=== PATIENT | female | born 1990 | race Hispanic/Latino ===

== ENCOUNTER 2017-11-20 12:08 | Inpatient (IN) | payer OTHER ==
[~2017-11-20] VITALS: Ht 165.1 cm; Wt 68.0 kg
[2017-11-20] MEDS: LACTATED RINGERS 1000ML 1,000 ML IV PRN ×2 (13:00→21:30)
[2017-11-20 13:06] LABS: APPEARANCE,URINE Clear (CLEAR); BILIRUBIN,URINE Negative (NEGATIVE); COLOR,URINE Yellow (YELLOW); GLUCOSE, URINE (UA) Negative (NEGATIVE); HEMATOCRIT 34.1 % (36-48); KETONES,URINE Negative (NEGATIVE); LEUKOCYTE ESTERASE ,URINE Negative (NEGATIVE); MEAN CORPUSCULAR HEMOGLOBIN 27.1 pg (27.0-33.0); MEAN CORPUSCULAR HGB CONC 33.1 g/dL (32.0-36.0); MEAN CORPUSCULAR VOLUME 81.9 fL (79-99); NITRATE,URINE Negative (NEGATIVE); NUCLEATED RED BLOOD CELLS 0.1 % (0.0-0.19); OCCULT BLOOD,URINE Small (NEGATIVE); PLATELET COUNT (AUTO) 265 K/uL (130-400); PROTEIN,URINE Negative (NEGATIVE); RED BLOOD CELL COUNT(AUTO) 4.16 MIL/uL (4.00-5.50); RED CELL DISTRIBUTION WIDTH 14.8 % (11.0-15.5); UROBILINOGEN,URINE 0.2 mg/dL (0.2-1.0); WHITE BLOOD COUNT (AUTO) 7.3 K/uL (4.8-10.8)
[2017-11-20 13:13] LABS: BACTERIA,URINE Rare /HPF (None Seen); RBC,URINE 0-1 /HPF (0-1); SQUAMOUS EPITHELIAL CELL,UR Rare /HPF (0-2); WBC,URINE 0-1 /HPF (0-1)
[2017-11-21] MEDS ORDERED: OXYTOCIN 10 USP UNITS/ML ONE ×2 (03:51→15:19)
[2017-11-21] MEDS ORDERED: LACTATED RINGERS 1000ML 1,000 ML IV ONE (03:51)
[2017-11-21] MEDS ORDERED: OXYTOCIN 10 USP UNITS/ML 20 UNIT in LACTATED RINGERS 1000ML 1,000 ML IV SCH (05:00)
[2017-11-21] MEDS ORDERED: NALOXONE HCL 0.4 MG/1 ML ML IV PRN (08:15)
[2017-11-21] MEDS ORDERED: LACTATED RINGERS 500 ML 500 ML IV PRN (08:15)
[2017-11-21] MEDS ORDERED: EPHEDRINE SULFATE 50 MG/ML AMPULE IVP PRN (08:15)
[2017-11-21 08:21] LABS: HEPATITIS Bs ANTIGEN SCREEN P Negative (Negative)
[2017-11-21] MEDS ORDERED: METHYLERGONOVINE MALEATE 0.2 MG/1 ML ML ONE (15:19)
[2017-11-21] MEDS ORDERED: DIPH,PERTUSS(ACELL),TET VAC/PF 0.5 ML VIAL IM PRN (15:30)
[2017-11-21] MEDS ORDERED: ACETAMINOPHEN 325 MG TAB PO PRN (15:30)
[2017-11-21] MEDS ORDERED: HYDROCODONE/ACETAMINOPHEN 5/325 MG TAB PO PRN (15:30)
[2017-11-21] MEDS ORDERED: WITCH HAZEL 1 PAD TP PRN (15:30)
[2017-11-21] MEDS ORDERED: BENZOCAINE/LANOLIN/ALOE VERA 60 ML AEROSOL TP PRN (15:30)
[2017-11-21] MEDS ORDERED: MEASLES/MUMPS/RUBELLA VACCINE, LIVE 0.5 ML/VIAL SQ PRN (15:30)
[2017-11-21] MEDS ORDERED: LANOLIN 30GM OINTMENT TP PRN (15:30)
[2017-11-21 17:03] VITALS: BP 145/95
[2017-11-21] MEDS ORDERED: PNV11TAB5 PO (17:21)
[2017-11-21] MEDS: IBUPROFEN 600 MG TABLET PO PRN (18:54)
[2017-11-21 19:23] VITALS: BP 128/77
[2017-11-21] MEDS: DOCUSATE SODIUM 100 MG CAP PO SCH (20:36)
[2017-11-22 00:41] VITALS: BP 118/66
[2017-11-22] MEDS: IBUPROFEN 600 MG TABLET PO PRN ×3 (00:57→15:27)
[2017-11-22 04:48] VITALS: BP 113/70
[2017-11-22 07:23] VITALS: BP 105/51
[2017-11-22] MEDS: DOCUSATE SODIUM 100 MG CAP PO SCH (08:36)
[2017-11-22 11:39] VITALS: BP 115/74
[2017-11-22 15:18] VITALS: BP 112/72
== END 2017-11-22 16:05 | disposition home or self-care (01) | DRG 560 ==
LOC: OBSVTOIN 12:08 → LDH 12:08 → WSH 11-21 17:00
PROVIDERS: ADMIT Obstetrics & Gynecology; ATTEND Obstetrics & Gynecology
PROC: 10E0XZZ Delivery of Products of Conception, External Approach (ICD-10-PCS; principal; 2017-11-21)
PROC: 3E033VJ Introduction of Other Hormone into Peripheral Vein, Percutaneous Approach (ICD-10-PCS; 2017-11-21)
PROC: 0UQGXZZ Repair Vagina, External Approach (ICD-10-PCS; 2017-11-21)
PROC: 00HU33Z Insertion of Infusion Device into Spinal Canal, Percutaneous Approach (ICD-10-PCS; 2017-11-21)
PROC: 3E0R3BZ Introduction of Anesthetic Agent into Spinal Canal, Percutaneous Approach (ICD-10-PCS; 2017-11-21)
DX: O69.2XX0 Labor and delivery complicated by other cord entanglement, with compression, not applicable or unspecified (principal); O41.03X0 Oligohydramnios, third trimester, not applicable or unspecified; O71.4 Obstetric high vaginal laceration alone; Z37.0 Single live birth; Z3A.40 40 weeks gestation of pregnancy; Z83.3 Family history of diabetes mellitus; Z82.49 Family history of ischemic heart disease and other diseases of the circulatory system; Z82.3 Family history of stroke
CPT/HCPCS: 36415; 81001; 85027; 86592; 86850; 86900; 86901; 87340; A4314; J2210; J2590; J7120

== ENCOUNTER 2019-09-10 01:05 | Inpatient (IN) | payer BC, OTHER ==
[~2019-09-10] VITALS: Ht 167.6 cm; Wt 68.0 kg
[~2019-09-10 01:05] MED LIST: PNV11TAB5 PO
[2019-09-10] MEDS ORDERED: LACTATED RINGERS 1000ML 1,000 ML IV PRN (01:42)
[2019-09-10] MEDS ORDERED: LACTATED RINGERS 1000ML 1,000 ML IV ONE (01:50)
[2019-09-10 01:56] LABS: MEAN CORPUSCULAR HEMOGLOBIN 28.3 pg (27.0-33.0); MEAN CORPUSCULAR HGB CONC 33.5 g/dL (32.0-36.0); MEAN CORPUSCULAR VOLUME 84.5 fL (79-99); PLATELET COUNT (AUTO) 248 K/uL (130-400); RED BLOOD CELL COUNT(AUTO) 4.38 MIL/uL (4.00-5.50); RED CELL DISTRIBUTION WIDTH 14.9 % (11.0-15.5); WHITE BLOOD COUNT (AUTO) 9.9 K/uL (4.8-10.8)
[2019-09-10 01:57] LABS: BILIRUBIN,URINE Negative (NEGATIVE); COLOR,URINE Yellow (YELLOW); GLUCOSE, URINE (UA) Negative (NEGATIVE); KETONES,URINE 40 mg/dL (NEGATIVE); LEUKOCYTE ESTERASE ,URINE Small (NEGATIVE); NITRATE,URINE Negative (NEGATIVE); OCCULT BLOOD,URINE Small (NEGATIVE); PROTEIN,URINE Negative (NEGATIVE)
[2019-09-10] MEDS ORDERED: AMPICILLIN 2GM+NS 100ML 100 ML IV SCH (02:00)
[2019-09-10] MEDS: AMPICILLIN 1GM+NS 50ML 50 ML IV SCH ×4 (02:00→19:47)
[2019-09-10] MEDS ORDERED: EPHEDRINE SULFATE 50 MG/ML AMPULE IVP PRN (02:00)
[2019-09-10] MEDS ORDERED: NALOXONE HCL 0.4 MG/1 ML ML IV PRN (02:00)
[2019-09-10] MEDS ORDERED: LACTATED RINGERS 500 ML 500 ML IV PRN (02:00)
[2019-09-10] MEDS ORDERED: ROPIVACAINE 0.2% 100ML VIAL 100 ML EP SCH (02:00)
[2019-09-10 02:01] LABS: APPEARANCE,URINE SLIGHTLY CLOUDY (CLEAR)
[2019-09-10] MEDS ORDERED: AMPICILLIN 2GM+NS 100ML 100 ML IV ONE (02:01)
[2019-09-10 02:04] LABS: BACTERIA,URINE Few /HPF (None Seen); MUCUS,URINE Rare LPF (None Seen)
[2019-09-10] MEDS ORDERED: LIDOCAINE HCL 1% 20 ML VIAL ONE (05:52)
[2019-09-10 07:48] VITALS: BP 114/68
--- NOTE | 2019-09-10 08:10 | NUR ---
ASSISTED PATIENT OOB TO RESTROOM. NO DIZZINESS REPORTED. PATIENT ABLE TO VOID 400ML. PERICARE GIVEN. PATIENT TOLERATED AMBULATION WELL.
[2019-09-10] MEDS: OXYTOCIN-LR 20 UNITS/1000 ML 1,000 ML IV SCH ×2 (08:34→19:47)
[2019-09-10] MEDS ORDERED: WITCH HAZEL 1 PAD TP PRN (09:30)
[2019-09-10] MEDS ORDERED: BENZOCAINE/LANOLIN/ALOE VERA 60 ML AEROSOL TP PRN (09:30)
[2019-09-10] MEDS ORDERED: LANOLIN 30GM OINTMENT TP PRN (09:30)
[2019-09-10] MEDS ORDERED: DIPH,PERTUSS(ACELL),TET VAC/PF 0.5 ML VIAL IM PRN (09:30)
[2019-09-10] MEDS ORDERED: ACETAMINOPHEN-CODEINE 300/30MG TAB PO PRN (09:30)
[2019-09-10 11:36] VITALS: BP 123/53
[2019-09-10] MEDS: ACETAMINOPHEN 325 MG TAB PO PRN (11:50)
[2019-09-10 16:21] VITALS: BP 125/76
[2019-09-10] MEDS: IBUPROFEN 600 MG TABLET PO PRN (17:01)
[2019-09-10 19:53] VITALS: BP 122/73
[2019-09-10] MEDS: DOCUSATE SODIUM 100 MG CAP PO SCH (20:56)
[2019-09-10 23:47] VITALS: BP 128/71
[2019-09-11 03:44] VITALS: BP 114/69
[2019-09-11] MEDS: AMPICILLIN 1GM+NS 50ML 50 ML IV SCH (03:57)
[2019-09-11] MEDS: IBUPROFEN 600 MG TABLET PO PRN (05:11)
[2019-09-11 05:18] LABS: HEMATOCRIT 32.6 % (36-48); MEAN CORPUSCULAR HEMOGLOBIN 27.1 pg (27.0-33.0); MEAN CORPUSCULAR HGB CONC 31.9 g/dL (32.0-36.0); MEAN CORPUSCULAR VOLUME 84.9 fL (79-99); PLATELET COUNT (AUTO) 189 K/uL (130-400); RED BLOOD CELL COUNT(AUTO) 3.84 MIL/uL (4.00-5.50); WHITE BLOOD COUNT (AUTO) 10.2 K/uL (4.8-10.8)
[2019-09-11 07:11] LABS: HEPATITIS Bs ANTIGEN SCREEN P Negative (Negative)
[2019-09-11 07:21] VITALS: BP 122/77
[2019-09-11] MEDS: DOCUSATE SODIUM 100 MG CAP PO SCH (09:00)
[2019-09-11] MEDS: ACETAMINOPHEN 325 MG TAB PO PRN (09:02)
[2019-09-11 11:24] VITALS: BP 113/64
--- NOTE | 2019-09-11 11:35 | NUR ---
INSTRUCTIONS READ AND EXPLAINED TO PATIENT. COVID19 INFORMATION HANDED TO PATIENT WELL RX FOR IBUPROFEN 600MG. QUESTIONS INVITED AND ANSWERED.
--- NOTE | 2019-09-11 11:45 | NUR ---
PATIENT LEFT UNIT VIA WHEELCHAIR WITH BABY IN ARMS. PERSONAL VEHICLE USED FOR TRANSPORTATION ACCOMPANIED BY SIGNIFICANT OTHER. BABY SECURE IN CARSEAT.
== END 2019-09-11 11:45 | disposition home or self-care (01) | DRG 807 ==
LOC: EDH 01:05 → LDH 01:06 → OBSVTOIN 01:06 → WSH 08:40
PROVIDERS: ADMIT Obstetrics & Gynecology; ATTEND Obstetrics & Gynecology
PROC: 10E0XZZ Delivery of Products of Conception, External Approach (ICD-10-PCS; principal; 2019-09-10)
PROC: 00HU33Z Insertion of Infusion Device into Spinal Canal, Percutaneous Approach (ICD-10-PCS; 2019-09-10)
PROC: 3E0R3BZ Introduction of Anesthetic Agent into Spinal Canal, Percutaneous Approach (ICD-10-PCS; 2019-09-10)
DX: O80 Encounter for full-term uncomplicated delivery (principal); Z37.0 Single live birth; Z3A.38 38 weeks gestation of pregnancy
CPT/HCPCS: 36415; 81001; 85027; 86592; 86850; 86900; 86901; 87340; A4314; G0378; J0290; J2590; J7120